=== PATIENT | female | born 1980 | race Caucasian/White ===

== ENCOUNTER → 2022-03-23 | Outpatient (CLI) | payer BC ==
[~2022-03-23] MED LIST: PROTONIX40 MG PO
== END ==
LOC: MAMMO 16:07
PROVIDERS: ATTEND Nurse Practitioner Women's Health
DX: Z12.31 Encounter for screening mammogram for malignant neoplasm of breast (principal); N64.89 Other specified disorders of breast

== ENCOUNTER → 2024-03-20 | Outpatient (CLI) | payer BC | END | disposition home or self-care (01) | LOC: MAMMO 03-05 13:30 | PROVIDERS: ATTEND Nurse Practitioner | DX: Z12.31 Encounter for screening mammogram for malignant neoplasm of breast (principal) ==